=== PATIENT | male | born 1955 | race Caucasian/White ===

== ENCOUNTER → 2023-07-20 09:53 | Outpatient (CLI) | payer MEDICARE, BC, SELFPAY ==
--- NOTE | 2023-07-20 09:57 | DI.US.S_ITS ---
PROCEDURE: US ABD AORTA ANEURYSM SCREEN INDICATIONS: AAA SCREENING TECHNIQUE: Real time scanning was performed of the aorta and iliac arteries, with image documentation. COMPARISON: None. FINDINGS: Aorta: Proximal aortic diameter measures 1.9 x 1.8 cm. Mid-aorta measures 1.9 x 1.9 cm. Distal aortic diameter is 1.9 x 2.0 cm. Iliac arteries: Right common iliac artery measures 1.6 cm. Left common iliac artery measures 1.5 cm. IMPRESSION: Unremarkable ultrasound of the abdominal aorta without aneurysm Approved by: Maxi Hutton M.D. on 07/20/2023 at 18:27
== END ==
PROVIDERS: PCP Family Medicine; Referring Provider Family Medicine; Visit Provider Family Medicine
DX: Z13.6 Encounter for screening for cardiovascular disorders (principal); Z87.891 Personal history of nicotine dependence
CPT/HCPCS: 76706

== ENCOUNTER → 2024-12-20 10:45 | Outpatient (CLI) | payer MEDICARE, BC, SELFPAY ==
--- NOTE | 2024-12-20 10:48 | DI.RAD.S_ITS ---
PROCEDURE: XR SHOULDER LT MIN 2V INDICATIONS: L SHOULDER PAIN TECHNIQUE: Three views of the left shoulder were acquired. COMPARISON: None. FINDINGS: Bones: There are no osseous abnormalities. Acromioclavicular and glenohumeral joints: Mild acromioclavicular and glenohumeral degeneration . Soft tissues: No soft tissue swelling, calcification or mass. IMPRESSION: Mild degeneration Dictated by: Adrián Llanos M.D. on 12/23/2024 at 12:22 Approved by: Adrián Llanos M.D. on 12/23/2024 at 12:23
== END ==
PROVIDERS: PCP Family Medicine; Referring Provider Family Medicine; Visit Provider Family Medicine
DX: M19.012 Primary osteoarthritis, left shoulder (principal); M25.512 Pain in left shoulder
CPT/HCPCS: 73030